=== PATIENT | female | born 1965 | race African-American/Black ===

== ENCOUNTER 2016-07-05 23:55 | Emergency (ER) | payer OTHER ==
[~2016-07-05] VITALS: Ht 162.6 cm; Wt 89.8 kg
[2016-07-06] MEDS ORDERED: ACETAMINOPHEN 325 MG TAB PO ONE ×2 (00:17→00:30)
[2016-07-06 02:53] VITALS: BP 149/91
== END 2016-07-06 04:51 | disposition home or self-care (01) ==
LOC: ER 23:55
DX: S82.851A Displaced trimalleolar fracture of right lower leg, initial encounter for closed fracture (principal); M79.604 Pain in right leg; W10.8XXA Fall (on) (from) other stairs and steps, initial encounter; Y93.01 Activity, walking, marching and hiking; Y99.8 Other external cause status; Y92.89 Other specified places as the place of occurrence of the external cause
CPT/HCPCS: 29515; 73610; 73620